=== PATIENT | male | born 1965 | race Two or more races ===

== ENCOUNTER 2020-06-30 20:39 | Inpatient (IN) | payer MEDICAID, SELFPAY ==
--- NOTE | ~2020-06-30 | XR_ITS ---
EXAMINATION: XR CHEST CLINICAL INFORMATION: Chest pain COMPARISON: Chest x-ray 07/01/2020 TECHNIQUE: Frontal view of the chest was obtained. 9:21 PM FINDINGS: Lungs are clear. No pulmonary vascular congestion. There is no pleural effusion. The heart size is normal. The cardiac and mediastinal contours are normal. There are multilevel degenerative changes of dorsal spine. Dextroscoliosis thoracic spine. XR/XR chest 1V IMPRESSION: No acute abnormality of chest.
--- NOTE | 2020-06-30 21:13 | ECG_ITS ---
Test Reason : CP Blood Pressure : / mmHG Vent. Rate : 071 BPM Atrial Rate : 071 BPM P-R Int : 164 ms QRS Dur : 098 ms QT Int : 406 ms P-R-T Axes : 049 025 -40 degrees QTc Int : 441 ms Normal sinus rhythm Minimal voltage criteria for LVH, may be normal variant Nonspecific T wave abnormality Abnormal ECG When compared with ECG of 20-FEB-2019 22:15, Nonspecific ST and T wave abnormality more prominent Referred By: Generic ED Physician Electronically Signed By:VAISHALI LUTHER
[2020-06-30 21:38] VITALS: BP 175/89; PULSE 69; RESP 20; TEMP 36.9; O2SAT 97; BMI 27.4
[2020-06-30 21:42] VITALS: BP 175/8; PULSE 72; PULSE 74; RESP 18; TEMP 36.9; O2SAT 98
[2020-06-30 21:42] LABS: MANUAL DIFF FLAG NO
[2020-06-30 21:45] LABS: Basophils Percent Auto 0.5 % (0-2); Eosinophils Absolute Auto 0.6 X10*3/uL (0.0-0.4); Eosinophils Percent Auto 7.9 % (0-4); Hematocrit 38.2 % (42-52); Hemoglobin 12.6 g/dl (14.0-18.0); Imm Gran Abs Auto 0.01 X10*3/uL (0.00-0.03); Imm Gran Pct Auto 0.1 % (0.0-0.4); Lymphocytes Absolute Auto 2.2 X10*3/uL (1.2-4.9); Lymphocytes Percent Auto 28.6 % (20-40); Mean Corpuscular Hemoglobin 27.2 pg (27.0-33.0); Mean Corpuscular Volume 82.3 fL (80-98); Mean Platelet Volume 9.1 fL (9.4-12.4); Monocytes Absolute Auto 0.6 X10*3/uL (0.1-1.2); Monocytes Percent Auto 7.8 % (2-11); Neutrophils Absolute Auto 4.3 X10*3/uL (2.0-8.3); Neutrophils Percent Auto 55.1 % (45-73); Platelet Count 284 X10*3/uL (160-400); Red Blood Count 4.64 X10*6/uL (4.60-5.80); Red Cell Distribution Width 13.8 % (11.0-16.0); White Blood Count 7.8 X10*3/uL (4.8-10.8)
--- NOTE | 2020-06-30 21:52 | ED.CHESTPAIN ---
HPI - Chest Pain General Chief Complaint: Chest Pain Stated Complaint: CHEST PAIN Time Seen by Provider: 06/30/20 21:52 Source: patient Mode of arrival: ambulatory Limitations: no limitations History of Present Illness HPI narrative: Patient history of anxiety missed his Paxil for 3 days taking lorazepam in the nighttime no known coronary artery disease came from [place] complaining of chest pain off and on for last 3 days in the past patient stopped Paxil but never had this kind of pain, pain is sharp , localized to the left side comes and go stays for few minutes get worse on exertion associated with shortness of breath no diaphoresis no radiation of pain. patient denies any chest pain at this time Related Data Home Medications Medication Instructions Recorded Confirmed aspirin 81 mg PO DAILY 06/30/20 06/30/20 levothyroxine 50 mcg PO DAILY 06/30/20 06/30/20 losartan-hydrochlorothiazide 100 mg PO DAILY 06/30/20 06/30/20 paroxetine HCl 30 mg PO QAM 06/30/20 06/30/20 trazodone 50 mg PO BEDTIME 06/30/20 06/30/20 Allergies Allergy/AdvReac Type Severity Reaction Status Date / Time No Known Allergies Allergy Verified 06/30/20 21:38 [No Known Allergies*] Review of Systems Review of Systems: Constitutional : No Weight loss, No Fever, No Chills ENT/Mouth : No sore throat, No Rhinorrhea Eyes: No Eye Pain, No Swelling Cardiovascular : + Chest Pain, no palpitations Respiratory : No Cough, No Sputum, no shortness of breath Gastrointestinal : no Nausea, No Vomiting, No Diarrhea, No abdominal Pain, no black stools Genitourinary : No Dysuria, No Urinary Frequency Musculoskeletal : No joint pain, No Myalgias, No Joint Swelling Skin : No Skin Lesions, No rash Neuro : No Weakness, No Numbness, No Dizziness, No Headache Psych : + Anxiety/Panic, No Depression Heme/Lymph: No Bruising, No Lymphadenopathy Endocrine : No Polyuria, No Polydipsia All other systems reviewed and are negative [facility] Past Medical History Medical History (Updated 06/30/20 @ 23:54 by Wood Heller MD) Anxiety Hypertension Hypothyroidism Social History Social History Alcohol intake: never Smoking Status: Never smoker Use of substances other than those prescribed or required for medical reasons: No Advance Directives: No Physical Exam Vital Signs: Vital Signs: Last Vital Signs Temp 98.4 F 06/30/20 21:42 Pulse 63 07/01/20 00:41 Resp 18 07/01/20 00:23 BP 180/97 H 07/01/20 00:41 Pulse Ox 98 07/01/20 00:23 Body Mass Index 27.4 Appearance: Alert. Oriented X3. No acute distress. Anxious++ Eyes: PERRLA, No Nystagmus ENT: Pharynx normal. Oral Mucosa moist Neck: Normal inspection. Neck supple. CVS: Normal heart rate and rhythm. Pulses normal. Respiratory: No respiratory distress. Equal air entry bilateral, no wheezing/rales/rhonchi Abdomen: Soft and nontender. Bowel sounds are present, no mass palpable, no CVA tenderness Skin: Skin warm and dry. Normal skin color. Normal skin turgor. Extremities: No lower extremity edema. No calf tenderness Neuro: Oriented X 3. No motor deficit. No sensory deficit.No cerebellar signs , cranial nerves II-XII intact MDM - Chest Pain MDM Narrative Medical decision making narrative: Patient with chest pain for last 3 days off and on increases on exertion EKG known specific changes with T inversion in at release patient denies any chest pain at this time troponin increased with without any significant delta troponin increase. Will admit patient for non-STEMI for further evaluation Lab Data Attestation: I reviewed the patient's lab results. Result diagrams: 06/30/20 21:31 06/30/20 21:31 Labs: Lab Results 06/30/20 06/30/20 06/30/20 Range/Units 21:31 21:31 21:31 WBC 7.8 (4.8-10.8) X10*3/uL RBC 4.64 (4.60-5.80) X10*6/uL Hgb 12.6 L (14.0-18.0) g/dl Hct 38.2 L (42-52) % MCV 82.3 (80-98) fL MCH 27.2 (27.0-33.0) pg MCHC 33.0 (31.0-36.0) g/dl RDW 13.8 (11.0-16.0) % Plt Count 284 (160-400) X10*3/uL MPV 9.1 L (9.4-12.4) fL Immature Gran % (Auto) 0.1 (0.0-0.4) % Neut % (Auto) 55.1 (45-73) % Lymph % (Auto) 28.6 (20-40) % [place] % (Auto) 7.8 (2-11) % Eos % (Auto) 7.9 H (0-4) % Baso % (Auto) 0.5 (0-2) % Lymph # (Auto) 2.2 (1.2-4.9) X10*3/uL [place] # (Auto) 0.6 (0.1-1.2) X10*3/uL Eos # (Auto) 0.6 H (0.0-0.4) X10*3/uL Baso # (Auto) 0.0 (0.0-0.2) X10*3/uL Abs Immat Gran (auto) 0.01 (0.00-0.03) X10*3/uL Absolute Neuts (auto) 4.3 (2.0-8.3) X10*3/uL Absolute Nucleated RBC 0.000 (0.0-0.012) X10*3/uL Nucleated RBC % (auto) 0.0 (0.0-0.2) /100WBC PT 12.1 (10.8-13.0) SEC INR 1.0 (0.9-1.1) APTT 32.8 (24.1-38.0) SEC D-Dimer < 200 NG/ML Hold Blue Top SEE NOTE Sodium 137 (135-145) mmol/L Potassium 3.3 (3.3-5.1) mmol/L Chloride 100 (96-108) mmol/L Carbon Dioxide 27 (22-29) mmol/L Anion Gap 13 (12-20) BUN 11 (9-16) mg/dL Creatinine 0.72 (0.5-1.4) mg/dL Estim Creat Clear Calc 112.0 Estimated GFR > 60 Random Glucose 126 H (60-115) mg/dL Calcium 9.1 (8.4-10.2) mg/dL Troponin I High Sens (<3.5-35.0) ng/L COVID-19 ([facility]) (Negative) COVID-19 Clin Com 05/25/21 05/25/21 05/26/21 Range/Units 21:31 22:37 00:42 WBC (4.8-10.8) X10*3/uL RBC (4.60-5.80) X10*6/uL Hgb (14.0-18.0) g/dl Hct (42-52) % MCV (80-98) fL MCH (27.0-33.0) pg MCHC (31.0-36.0) g/dl RDW (11.0-16.0) % Plt Count (160-400) X10*3/uL MPV (9.4-12.4) fL Immature Gran % (Auto) (0.0-0.4) % Neut % (Auto) (45-73) % Lymph % (Auto) (20-40) % [place] % (Auto) (2-11) % Eos % (Auto) (0-4) % Baso % (Auto) (0-2) % Lymph # (Auto) (1.2-4.9) X10*3/uL [place] # (Auto) (0.1-1.2) X10*3/uL Eos # (Auto) (0.0-0.4) X10*3/uL Baso # (Auto) (0.0-0.2) X10*3/uL Abs Immat Gran (auto) (0.00-0.03) X10*3/uL Absolute Neuts (auto) (2.0-8.3) X10*3/uL Absolute Nucleated RBC (0.0-0.012) X10*3/uL Nucleated RBC % (auto) (0.0-0.2) /100WBC PT (10.8-13.0) SEC INR (0.9-1.1) APTT (24.1-38.0) SEC D-Dimer NG/ML Hold Blue Top Sodium (135-145) mmol/L Potassium (3.3-5.1) mmol/L Chloride (96-108) mmol/L Carbon Dioxide (22-29) mmol/L Anion Gap (12-20) BUN (9-16) mg/dL Creatinine (0.5-1.4) mg/dL Estim Creat Clear Calc Estimated GFR Random Glucose (60-115) mg/dL Calcium (8.4-10.2) mg/dL Troponin I High Sens 86.3 H* 93.7 H* (<3.5-35.0) ng/L COVID-19 ([facility]) Negative (Negative) COVID-19 Clin Com See Note ECG Data ECG #1: Attestation: I personally reviewed and interpreted this ECG as follows: Interpretation: Normal sinus rhythm normal intervals LVH T inversion in lateral leads normal axis Discharge Plan Discharge Clinical Impression: Non-STEMI (non-ST elevated myocardial infarction) Patient Disposition: Admitted As Inpatient
[2020-06-30 22:05] LABS: Anion Gap 13 (12-20); Blood Urea Nitrogen 11 mg/dL (9-16); Calcium 9.1 mg/dL (8.4-10.2); Carbon Dioxide 27 mmol/L (22-29); Chloride 100 mmol/L (96-108); Estimated Glomerular Filt Rate > 60; Glucose Random 126 mg/dL (60-115); Potassium 3.3 mmol/L (3.3-5.1); Sodium 137 mmol/L (135-145)
[2020-06-30 22:15] LABS: Troponin-I High Sensitivity 86.3 ng/L (<3.5-35.0)
[2020-06-30] MEDS: Nitroglycerin 2 % Oint 1 GM Packet 1 INCH TRANSDERMA (22:34)
[2020-06-30] MEDS: Aspirin 81 MG TAB.CHEW 162 MG PO (22:36)
[2020-06-30 22:44] LABS: Prothrombin Time 12.1 SEC (10.8-13.0)
[2020-06-30 22:47] LABS: Partial Thromboplastin Time 32.8 SEC (24.1-38.0)
[2020-06-30 23:23] LABS: Troponin-I High Sensitivity 93.7 ng/L (<3.5-35.0)
[2020-06-30 23:42] LABS: D Dimer < 200 NG/ML
[2020-07-01] VITALS (8 sets, daily range): BP systolic 113–195; BP diastolic 56–97; PULSE 50–65; RESP 13–20; TEMP 36.6–36.7; O2SAT 95–99
--- NOTE | 2020-07-01 00:36 | PC.NURSE ---
Jaimie at bedside assessing pt, this RN makes him aware of BP.
[2020-07-01] MEDS: Metoprolol Tartrate 25 MG TABLET PO (00:41)
[2020-07-01 01:04] LABS: COVID-19 Test Negative (Negative); IDNOW Serial# 9DD0AD1C
--- NOTE | 2020-07-01 01:07 | P.HPHOSP_ITS ---
History of Present Illness Date of Service: 07/01/20 Chief Complaint: Chest pain 55-year-old male with a past medical history of hypertension, hyperlipidemia, hypothyroidism presented to the hospital with a chief complaint of chest pain. Patient reports the road past couple days he has been having intermittent ep isodes of chest pain located on the left side of the chest nonradiating no associated lightheadedness dizziness sweating nausea or vomiting. Denies any fever chills cough. Denies any numbness tingling. Denies any GI or symptoms. Patient reported chest pain improved at the time of my interview. Denies any headaches. Denies any signs of bleeding. Review of all other systems is negative except mentioned above ER course: For ER team patient EKG showed T-wave inversion in the lateral leads. Troponins are indeterminate and plateaued; patient was also noted to be in hypertensive urgency. Admitted to the hospital for further management. [facility] Medical History (Updated 06/30/20 @ 23:54 by Wood Heller MD) Anxiety Hypertension Hypothyroidism Social History Alcohol intake: never Smoking Status: Never smoker Use of substances other than those prescribed or required for medical reasons: No Advance Directives: No Meds Allergies Allergy/AdvReac Type Severity Reaction Status Date / Time No Known Allergies Allergy Verified 06/30/20 21:38 [No Known Allergies*] Active Medications: Current Medications Generic Name Dose Route Start Last Admin Trade Name Freq PRN Reason Stop Dose Admin Acetaminophen 650 mg 07/01/20 01:03 Acetaminophen 325 Mg Tablet PO Q6H PRN Pain, Mild (Pain Scale 1-3) Enoxaparin Sodium 75 mg 07/01/20 01:15 Enoxaparin Sodium 80 Mg/0.8 Ml Syringe 1 mg/kg (75 mg) SUBCUT Q12H [facility] Nitroglycerin 0.4 mg 07/01/20 01:06 Nitroglycerin 0.4 Mg Tab.Subl SUBLINGUAL Q5M PRN Chest Pain Senna 17.2 mg 07/01/20 01:03 Sennosides 8.6 Mg Tablet PO BEDTIME PRN Constipation Sodium Chloride 3 ml 07/01/20 08:00 0.9 % Sodium Chloride Flush 3 [facility] Medications Medication Instructions Recorded Confirmed Last Taken Type aspirin 81 mg PO DAILY 06/30/20 06/30/20 Unknown History levothyroxine 50 mcg PO DAILY 06/30/20 06/30/20 Unknown History losartan-hydrochlorothiazide 100 mg PO DAILY 06/30/20 06/30/20 Unknown History paroxetine HCl 30 mg PO QAM 06/30/20 06/30/20 Unknown History trazodone 50 mg PO BEDTIME 06/30/20 06/30/20 Unknown History Physical Exam Vital Signs and Narrative: Vital Signs: Last Vital Signs Temp 98.4 F 06/30/20 21:42 Pulse 63 07/01/20 00:41 Resp 18 07/01/20 00:23 BP 180/97 H 07/01/20 00:41 Pulse Ox 98 07/01/20 00:23 Body Mass Index 27.4 Gen: Appears be in no acute distress HEENT: NCAT, Moist mucosa. Pulmonary: Vesicular breath sounds, fair air entry CVS: Normal S1-S2 Abdomen: BS+, Soft, Nontender Extremities: Warm well perfused Neuro: Alert and awake. Results Labs CBC and Chem 7: 07/01/20 06:05 06/30/20 21:31 Labs: Laboratory Results - last 24 hr 06/30/20 06/30/20 06/30/20 21:31 21:31 21:31 MCV 82.3 MCH 27.2 MCHC 33.0 RDW 13.8 Plt Count 284 MPV 9.1 L Immature Gran % (Auto) 0.1 Neut % (Auto) 55.1 Lymph % (Auto) 28.6 [place] % (Auto) 7.8 Eos % (Auto) 7.9 H Baso % (Auto) 0.5 Lymph # (Auto) 2.2 [place] # (Auto) 0.6 Eos # (Auto) 0.6 H Baso # (Auto) 0.0 Abs Immat Gran (auto) 0.01 Absolute Neuts (auto) 4.3 Absolute Nucleated RBC 0.000 Nucleated RBC % (auto) 0.0 PT 12.1 INR 1.0 APTT 32.8 D-Dimer < 200 Hold Blue Top SEE NOTE Anion Gap 13 Estim Creat Clear Calc 112.0 Estimated GFR > 60 Random Glucose 126 H Calcium 9.1 Troponin I High Sens COVID-19 ([facility]) COVID-19 Clin Com 06/30/20 06/30/20 07/01/20 21:31 22:37 00:42 MCV MCH MCHC RDW Plt Count MPV Immature Gran % (Auto) Neut % (Auto) Lymph % (Auto) [place] % (Auto) Eos % (Auto) Baso % (Auto) Lymph # (Auto) [place] # (Auto) Eos # (Auto) Baso # (Auto) Abs Immat Gran (auto) Absolute Neuts (auto) Absolute Nucleated RBC Nucleated RBC % (auto) PT INR APTT D-Dimer Hold Blue Top Anion Gap Estim Creat Clear Calc Estimated GFR Random Glucose Calcium Troponin I High Sens 86.3 H* 93.7 H* COVID-19 ([facility]) Negative COVID-19 Clin Com See Note Imaging Radiologist's Impressions: Impressions Chest X-Ray 06/30/20 21:13 IMPRESSION: No acute abnormality of chest. Assessment and Plan (1) Non-STEMI (non-ST elevated myocardial infarction): Status: Acute 55-year-old male with a past medical history of hypertension, hyperlipi demia, hypothyroidism presented to the hospital with a chief complaint of chest pain. Noted to have indeterminate troponins and little T-wave inversions on the EKG. Admitted for further management. NSTEMI: Patient currently chest pain-free Will keep the patient on telemetry Echocardiogram Will start the patient on Lovenox at therapeutic dose. Continue aspirin and metoprolol. Will obtain lipid profile, TSH, hemoglobin A1c Hypertensive urgency: Patient asymptomatic. Continue home medications. Patient is started on metoprolol as well. History of hypothyroidism: Continue home levothyroxine. DVT prophylaxis: Patient on Lovenox Code status: Full code
[2020-07-01] MEDS: Enoxaparin Sodium 80 MG/0.8 ML SYRINGE 75 MG SUBCUT (01:57)
[2020-07-01] MEDS: traZODone HCL 50 MG TABLET PO (02:02)
[2020-07-01 06:13] LABS: MANUAL DIFF FLAG NO
[2020-07-01] MEDS: Levothyroxine Sodium 50 MCG TABLET PO (06:29)
[2020-07-01 06:32] LABS: Basophils Absolute Auto 0.1 X10*3/uL (0.0-0.2); Basophils Percent Auto 0.8 % (0-2); Eosinophils Absolute Auto 0.7 X10*3/uL (0.0-0.4); Eosinophils Percent Auto 8.4 % (0-4); Hematocrit 41.9 % (42-52); Hemoglobin 13.3 g/dl (14.0-18.0); Imm Gran Abs Auto 0.02 X10*3/uL (0.00-0.03); Imm Gran Pct Auto 0.2 % (0.0-0.4); Lymphocytes Absolute Auto 2.2 X10*3/uL (1.2-4.9); Lymphocytes Percent Auto 25.7 % (20-40); Mean Corpuscular HGB Conc 31.7 g/dl (31.0-36.0); Mean Corpuscular Hemoglobin 26.4 pg (27.0-33.0); Mean Corpuscular Volume 83.1 fL (80-98); Mean Platelet Volume 9.3 fL (9.4-12.4); Monocytes Absolute Auto 0.6 X10*3/uL (0.1-1.2); Neutrophils Percent Auto 57.9 % (45-73); Platelet Count 311 X10*3/uL (160-400); Red Blood Count 5.04 X10*6/uL (4.60-5.80); Red Cell Distribution Width 13.8 % (11.0-16.0); White Blood Count 8.7 X10*3/uL (4.8-10.8)
[2020-07-01 06:51] LABS: Anion Gap 12 (12-20); Blood Urea Nitrogen 10 mg/dL (9-16); Calcium 9.3 mg/dL (8.4-10.2); Carbon Dioxide 31 mmol/L (22-29); Chloride 99 mmol/L (96-108); Creatinine Clr Calc Pharmacy 108.9; Estimated Glomerular Filt Rate > 60; Glucose Random 132 mg/dL (60-115); Potassium 3.7 mmol/L (3.3-5.1); Sodium 138 mmol/L (135-145)
[2020-07-01 06:53] LABS: Cholesterol 248 mg/dL; HDL Cholesterol 56 mg/dL; LDL Cholesterol Calculated 172 mg/dl; Triglycerides 102 mg/dL
[2020-07-01 07:15] LABS: Thyroid Stimulating Hormone 4.35 uIU/mL (0.32-4.0)
[2020-07-01 07:17] LABS: Estimated Average Glucose 137 mg/dL; Hemoglobin A1c % 6.4 %
[2020-07-01] MEDS: PARoxetine HCL 30 MG TABLET PO (08:02)
[2020-07-01] MEDS: Metoprolol Tartrate 12.5 MG HALFTAB PO (08:03)
[2020-07-01] MEDS: Aspirin Enteric Coated 81 MG TABLET.DR PO (08:03)
[2020-07-01] MEDS: 0.9 % Sodium Chloride Flush 3 ML SYRINGE IVFLUSH (08:03)
--- NOTE | 2020-07-01 10:19 | P.CONCA_ITS ---
History of Present Illness History of Present Illness Date of Service: 07/01/20 Consult reason: chest pain Chief complaint: NSTEMI Narrative: This is a cardiology consultation regarding chest pain. Patient states that he is originally from [place] but has recently moved here few weeks back. He has a history of hypertension on medications. Otherwise no known co ronary disease or myocardial infarction. He states that for the last few days, he has been having a discomfort in the left chest. This has been happening primarily with walking cording to him. When he is resting he states he feels okay. Denies any shortness of breath or other cardiac symptoms. Hence he was admitted. Troponins have been elevated since admission and hence we have been asked to assess him. Nonsmoker. Denies any family history of premature cardiac disease. Review of Systems Review of Systems: Yes all other systems are reviewed and are negative Cardiovascular: Cardiovascular: Reports as per HPI, Reports no additional cardiovascular complaints, Denies acrocyanosis, Denies cool extremities, Denies painful fingertips, Reports chest pain, Denies chest pain at rest, Denies diaphoresis, Denies syncope, Denies irregular heart rhythm, Denies claudication, Denies leg edema, Denies lightheadedness, Denies palpitations and Denies dyspnea Respiratory: Respiratory: Denies dyspnea Neurologic: Denies syncope Endocrine: Endocrine: Denies palpitations PMFSH Past Medical History Medical History (Updated 07/01/20 @ 10:22 by Prateek Navarrete MD) Anxiety Essential hypertension Hypertension Hypothyroidism Social History Social History Alcohol intake: never Use of substances other than those prescribed or required for medical reasons: No Currently Displaying Signs/Symptoms of Drug Intoxication Withdrawal: No Advance Directives: No Do you have thoughts of harming others: None Do you have a plan to hurt others: No Plan Meds Allergies Allergy/AdvReac Type Severity Reaction Status Date / Time No Known Allergies Allergy Verified 06/30/20 21:38 [No Known Allergies*] Active Medications: Current Medications Generic Name Dose Route Start Last Admin Trade Name Freq PRN Reason Stop Dose Admin Acetaminophen 650 mg 07/01/20 01:03 Acetaminophen 325 Mg Tablet PO Q6H PRN Pain, Mild (Pain Scale 1-3) Aspirin 81 mg 07/01/20 09:00 07/01/20 08:03 Aspirin Enteric Coated 81 Mg Tablet. PO 81 mg DAILY [facility] Administration Atorvastatin Calcium 40 mg 07/01/20 21:00 Atorvastatin Calcium 40 Mg Tablet PO BEDTIME [facility] Enoxaparin Sodium 75 mg 07/01/20 02:00 07/01/20 01:57 Enoxaparin Sodium 80 Mg/0.8 Ml Syringe 1 mg/kg (75 mg) 75 mg SUBCUT Administration Q12H [facility] Hydrochlorothiazide 12.5 mg 07/01/20 09:54 Hydrochlorothiazide 12.5 Mg Tablet PO DAILY [facility] Protocol Levothyroxine Sodium 50 mcg 07/01/20 06:30 07/01/20 06:29 Levothyroxine Sodium 50 Mcg Tablet PO 50 mcg DAILY@0630 [facility] Administration Losartan Potassium 100 mg 07/01/20 09:52 Losartan Potassium 50 Mg Tablet PO DAILY [facility] Protocol Metoprolol Tartrate 12.5 mg 07/01/20 09:00 07/01/20 08:03 Metoprolol Tartrate 12.5 Mg Halftab PO 12.5 mg BID [facility] Administration Protocol Nitroglycerin 0.4 mg 07/01/20 01:06 Nitroglycerin 0.4 Mg Tab.Subl SUBLINGUAL Q5M PRN Chest Pain Paroxetine HCl 30 mg 07/01/20 09:00 07/01/20 08:02 Paroxetine Hcl 30 Mg Tablet PO 30 mg DAILY [facility] Administration Senna 17.2 mg 07/01/20 01:03 Sennosides 8.6 Mg Tablet PO BEDTIME PRN Constipation Sodium Chloride 3 ml 07/01/20 08:00 07/01/20 08:03 0.9 % Sodium Chloride Flush 3 Ml Syringe IVFLUSH 3 ml QSHIFT [facility] Administration Trazodone HCl 50 mg 07/01/20 21:00 Trazodone Hcl 50 Mg Tablet PO BEDTIME [facility] Home Medications Medication Instructions Recorded Confirmed Last Taken Type aspirin 81 mg PO DAILY 06/30/20 06/30/20 Unknown History levothyroxine 50 mcg PO DAILY 06/30/20 06/30/20 Unknown History losartan-hydrochlorothiazide 100 mg PO DAILY 06/30/20 06/30/20 Unknown History paroxetine HCl 30 mg PO QAM 06/30/20 06/30/20 Unknown History trazodone 50 mg PO BEDTIME 06/30/20 06/30/20 Unknown History Physical Exam Vital Signs: Vital Signs: Last Vital Signs Temp 98.0 F 07/01/20 07:52 Pulse 62 07/01/20 07:52 Resp 17 07/01/20 07:52 BP 113/56 L 07/01/20 07:52 Pulse Ox 99 07/01/20 07:52 Body Mass Index 27.4 Const: General: cooperative, comfortable and no acute distress Orientation/consciousness: patient oriented x3 HENMT: Other: Unremarkable Neck: Neck: Yes normal visual inspection Chest: Chest palpation & inspection: normal inspection of the chest Resp: Auscultation: clear to auscultation bilaterally, no crackles and no wheezes Cardio: Jugular venous distension: no JVD Palpation: normal PMI Heart sounds: S1 normal heart sound present, S2 normal heart sound present, no schneider ps, no murmurs and no rubs GI: Palpation (GI): Soft to palpation Back/Spine/Pelvis: Other: unremarkable Skin: General skin exam: no rashes or lesions noted Neuro: General: patient oriented x3 Extrem: General: Yes no clubbing, cyanosis or edema Psych: Mental Status: mental status grossly normal Results Labs and Meds Result diagrams: 07/01/20 06:05 07/01/20 06:05 Lab results: Laboratory Results - last 24 hr 06/30/20 06/30/20 06/30/20 21:31 21:31 21:31 WBC 7.8 RBC 4.64 Hgb 12.6 L Hct 38.2 L MCV 82.3 MCH 27.2 MCHC 33.0 RDW 13.8 Plt Count 284 MPV 9.1 L Immature Gran % (Auto) 0.1 Neut % (Auto) 55.1 Lymph % (Auto) 28.6 [place] % (Auto) 7.8 Eos % (Auto) 7.9 H Baso % (Auto) 0.5 Lymph # (Auto) 2.2 [place] # (Auto) 0.6 Eos # (Auto) 0.6 H Baso # (Auto) 0.0 Abs Immat Gran (auto) 0.01 Absolute Neuts (auto) 4.3 Absolute Nucleated RBC 0.000 Nucleated RBC % (auto) 0.0 PT 12.1 INR 1.0 APTT 32.8 D-Dimer < 200 Hold Blue Top SEE NOTE Sodium 137 Potassium 3.3 Chloride 100 Carbon Dioxide 27 Anion Gap 13 BUN 11 Creatinine 0.72 Estim Creat Clear Calc 112.0 Estimated GFR > 60 Random Glucose 126 H Estimat Average Glucose Hemoglobin A1c % Calcium 9.1 Troponin I High Sens Triglycerides Cholesterol LDL Cholesterol, Calc HDL Cholesterol TSH COVID-19 ([facility]) COVID-19 Clin Com 06/30/20 06/30/20 07/01/20 21:31 22:37 00:42 WBC RBC Hgb Hct MCV MCH MCHC RDW Plt Count MPV Immature Gran % (Auto) Neut % (Auto) Lymph % (Auto) [place] % (Auto) Eos % (Auto) Baso % (Auto) Lymph # (Auto) [place] # (Auto) Eos # (Auto) Baso # (Auto) Abs Immat Gran (auto) Absolute Neuts (auto) Absolute Nucleated RBC Nucleated RBC % (auto) PT INR APTT D-Dimer Hold Blue Top Sodium Potassium Chloride Carbon Dioxide Anion Gap BUN Creatinine Estim Creat Clear Calc Estimated GFR Random Glucose Estimat Average Glucose Hemoglobin A1c % Calcium Troponin I High Sens 86.3 H* 93.7 H* Triglycerides Cholesterol LDL Cholesterol, Calc HDL Cholesterol TSH COVID-19 ([facility]) Negative COVID-19 Clin Com See Note 07/01/20 07/01/20 07/01/20 06:05 06:05 06:05 WBC 8.7 RBC 5.04 Hgb 13.3 L Hct 41.9 L MCV 83.1 MCH 26.4 L MCHC 31.7 RDW 13.8 Plt Count 311 MPV 9.3 L Immature Gran % (Auto) 0.2 Neut % (Auto) 57.9 Lymph % (Auto) 25.7 [place] % (Auto) 7.0 Eos % (Auto) 8.4 H Baso % (Auto) 0.8 Lymph # (Auto) 2.2 [place] # (Auto) 0.6 Eos # (Auto) 0.7 H Baso # (Auto) 0.1 Abs Immat Gran (auto) 0.02 Absolute Neuts (auto) 5.0 Absolute Nucleated RBC 0.000 Nucleated RBC % (auto) 0.0 PT INR APTT D-Dimer Hold Blue Top Sodium 138 Potassium 3.7 Chloride 99 Carbon Dioxide 31 H Anion Gap 12 BUN 10 Creatinine 0.74 Estim Creat Clear Calc 108.9 Estimated GFR > 60 Random Glucose 132 H Estimat Average Glucose 137 Hemoglobin A1c % 6.4 Calcium 9.3 Troponin I High Sens Triglycerides Cholesterol LDL Cholesterol, Calc HDL Cholesterol TSH COVID-19 ([facility]) COVID-19 [employer] 07/01/20 06:05 WBC RBC Hgb Hct MCV MCH MCHC RDW Plt Count MPV Immature Gran % (Auto) Neut % (Auto) Lymph % (Auto) [place] % (Auto) Eos % (Auto) Baso % (Auto) Lymph # (Auto) [place] # (Auto) Eos # (Auto) Baso # (Auto) Abs Immat Gran (auto) Absolute Neuts (auto) Absolute Nucleated RBC Nucleated RBC % (auto) PT INR APTT D-Dimer Hold Blue Top Sodium Potassium Chloride Carbon Dioxide Anion Gap BUN Creatinine Estim Creat Clear Calc Estimated GFR Random Glucose Estimat Average Glucose Hemoglobin A1c % Calcium Troponin I High Sens Triglycerides 102 Cholesterol 248 LDL Cholesterol, Calc 172 HDL Cholesterol 56 TSH 4.35 H COVID-19 ([facility]) COVID-19 Clin Com ECG Attestation: I personally reviewed and interpreted this ECG as follows: Interpretation: Admission EKG shows sinus rhythm at 71/Min; nonspecific ST-T changes; voltage criteria for left ventricular hypertrophy. Compared to prior EKG from 2019, lateral nonspecific changes are more prominent. Imaging Radiologist's impression: Impressions Chest X-Ray 06/30/20 21:13 IMPRESSION: No acute abnormality of chest. Assessment and Plan (1) Non-STEMI (non-ST elevated myocardial infarction): Status: Acute (2) Essential hypertension: Status: Acute Labs reviewed. Hemoglobin is 13.3. White cells 8.7. Platelets are 311. Potassium 3.7. Creatinine is 0.74. BUN is 10. Hemoglobin A1c is 6.4%. High sensitivity troponins are 86 followed by 93. LDL 172. TSH 4.35. COVID negative. Overall, symptoms of recent chest pain that sounds exertional accompanied by slightly elevated troponins. Echocardiogram requested today and pending. EKG is nonspecific. Blood pressure was high when he came at 175/89 mm Hg but the most recent value was 113/56 mm Hg. Recommend cardiac catheterization for further evaluation. Discussed with with the patient and he understands and agre es. Currently on Lovenox subcutaneous, aspirin, beta-blockers, losartan, HCTZ, atorvastatin. Procedures Date of Service Date of Service: 07/01/20
--- NOTE | 2020-07-01 10:30 | CA_ITS ---
Transthoracic Echocardiogram Patient (Last, First, Middle): Duglas Cooper, Gender: Male Date of : 1965 Age: 55 Procedure Date: 07/01/2020 Procedure Type: Transthoracic Echocardiogram Location: S3E Height: 167.64 cm Weight: 77.11 kg BSA: 1.87 m2 Heart Rate: bpm BP: 146 / 84 mmHg Adventure Guide: YR/CP Referring MD: Tico Etienne MD Symptoms: nstemi Study Quality: Fair/Contrast ECG Rhythm: Sinus Conclusions: - The left ventricular systolic function is normal. The visually estimated ejection fraction is between 60-65%. - The basal inferior segment is akinetic. The basal inferolateral segment is hypokinetic. - The inferolateral wall has aneurysmal type appearance but the red still seem to contract. Possibly from probe angulation but not definitive. Consider MRI for further evaluation. Findings Procedure Information Contrast agent, definity, is being given per protocol without apparent complications. Left Ventricle Normal left ventricular cavity size. The left ventricular systolic function is normal. The visually estimated ejection fraction is between 60-65%. There is mild septal and mild basal asymmetric hypertrophy. Even with contrast use, wall motion assessment is not optimal. The inferolateral wall has aneurysmal type appearance but the red still seem to contract. Basal inferior wall seems akinetic in some views. Wall Motion Rest Echo Findings The basal inferolateral segment is hypokinetic. The basal inferior segment is akinetic. Right Ventricle Normal right ventricular cavity size and systolic function. Atria The left atrium is mildly dilated. The right atrium is normal in size. Aortic Valve There is a normal trileaflet aortic valve. There is no aortic valve stenosis. There is trace (trivial) aortic valve regurgitation. Mitral Valve The mitral valve appears normal. There is mild mitral valve regurgitation. There is no mitral valve stenosis. Pulmonic Valve The pulmonic valve was not well visualized. Tricuspid Valve Normal tricuspid valve structure. There is trace tricuspid valve regurgitation. The pulmonary artery systolic pressure is normal. Great Vessels The aortic annulus, sinuses of valsalva, and asc aorta are normal in size. Venous The inferior vena cava is normal in size and collapses greater than 50% with inspiration. Pericardium/Pleural There is no evidence of pericardial effusion. Prior Study Comparison Changes noted compared to prior study dated: 02/21/2019. See comments on wall motion. Measurements 2D Linear Measurements IVSd: 1.14 0.6-0.9/0.6-1.0 cm LVIDd: 4.20 3.9-5.3/4.2-5.9 cm LVIDd Index: 2.25 2.4-3.2/2.2-3.1 cm/m2 LVIDs: 2.98 2.0-3.6 cm LVPWd: 1.13 0.7-1.1 cm Ao Root: 2.90 2.1-3.5 cm LA Diam: 3.70 2.7-3.8/3.0-4.0 cm LAIDs Index: 1.98 1.5-2.3 cm/m2 LV Mass: 204.62 67-162/88-224 g LV Mass Index: 109.42 43-95/49-115 g/m2 LVOT Diam: 2.40 3.0+(-)1.3 cm 2D Systolic Function EF 4C: 64.00 >55% EF 2C: 58.70 >55% EF BiP: 63.40 >55% Mitral Valve MV Pk E: 0.80 MV PK A: 0.56 MV Decel Time: 261.00 E/A: 1.40 E'Lateral: 8.27 E'Medial: 6.09 E/E' Med: 13.20 E/E' Lat: 9.70 PHT: 76.00 MVA PHT: 2.89 Decel Woodruff: 3.08 Aortic Valve AoV Pk James: 0.97 AoV Mn James: 0.73 AoV VTI: 0.27 AoV Pk Grad: 4.00 Aov Mn Grad: 2.00 OSVALDO Cont.VTI: 3.10 LVOT LVOT Pk James: 0.79 LVOT Mn James: 0.50 LVOT VTI: 0.18 LVOT Pk Grad: 3.00 LVOT Mn Grad: 1.00 LVOT Diam: 2.40 LVOT Area: 4.52 Diastolic Function MV Pk E: 0.80 MV Pk A: 0.56 E/A: 1.40 E'Medial: 6.09 E/E' Med: 13.20 E' Laterial: 8.27 E/E' Lat: 9.70 Tricuspid Valve TR Pk James: 2.04 TR Pk Grad: 17.00 RA Press: 3.00 RVSP: 20.00 Great Vessels Aorta Ao Root-2D: 2.90 2.0-3.7 cm Ao Asc: 2.80 2.1-3.4 cm Updated in Other Vendor System with Status of Final Prateek Navarrete MD electronically signed on 07/01/2020 3:43:15 PM with status of Final
--- NOTE | 2020-07-01 11:28 | P.DS_ITS ---
DS: Providers Provider Date of Service: 07/01/20 Date of admission: 07/01/20 01:03 Primary care physician: None Physician Consults: 07/01/20 01:03 Consult to Cardiology Routine Consulting Provider: Prateek Navarrete Reason for consultation: Chest pain 07/01/20 10:46 Consult to Care Team Routine Comment: Reason for consultation: depression DS: Diagnosis Discharge Diagnosis (1) Non-STEMI (non-ST elevated myocardial infarction): Status: Acute (2) Essential hypertension: Status: Acute DS: Medications Discharge Medications Home Medications: Home Medications Medication Instructions Recorded Confirmed aspirin 81 mg PO DAILY 06/30/20 06/30/20 levothyroxine 50 mcg PO DAILY 06/30/20 06/30/20 losartan-hydrochlorothiazide 100 mg PO DAILY 06/30/20 06/30/20 paroxetine HCl 30 mg PO QAM 06/30/20 06/30/20 trazodone 50 mg PO BEDTIME 06/30/20 06/30/20 Previous Rx's Medication Instructions Recorded enoxaparin 75 mg SUBCUT Q12H #2 ml 07/01/20 DS: Summary Hospital Course Hospital Course: 55-year-old male with a past medical history of hypertension, hyperlipidemia, hypothyroidism presented to the hospital with a chief complaint of chest pain. Patient reports the road past couple days he has been having intermittent episodes of chest pain located on the left side of the chest nonradiating no associated lightheadedness dizziness sweating nausea or vomiting. Denies any fever chills cough. Denies any numbness tingling. Denies any GI or symptoms. Patient reported chest pain improved at the time of my interview. Denies any headaches. Denies any signs of bleeding. Review of all other systems is negative except mentioned above ER course: For ER team patient EKG showed T-wave inversion in the lateral leads. Troponins are indeterminate and plateaued; patient was also noted to be in hypertensive urgency. Admitted to the hospital for further management. The course problem jasso section: Patient came withcheta pain and found to have Nstemi -High sensitivity troponins are 86 followed by 93. LDL 172. TSH 4.35,COVID negative,Hemoglobin A1c is 6.4%. Overall, symptoms of recent chest pain that sounds exertional accompanied by slightly elevated troponins. Echocardiogram requested today and pending. EKG is nonspecific. Blood pressure was high when he came at 175/89 mm Hg but the most recent value was 113/56 mm Hg. cardiology saw the patient:Recommend cardiac catheterization for further evaluation. Discussed with with the patient and he understands and agrees. Currently on heaprin drip, aspirin, beta-blockers, losartan, HCTZ, atorvastatin. Mild hyperglycemia : Hemoglobin A1c as above is 6.4, recommended to patient to follow diabetic diet. If fingersticks uncontrolled, may need diabetic medication also in [facility]. Above management discussed with the patient in detail length he understand and in agreement with the above plan, time spent 50 minutes and 50% time spent on counseling. Significant findings: As above. Procedures performed: None. Treatment and response: As above. Complications: None. Time Spent with Patient Time attestation: Total time spent providing and/or coordinating discharge services: Discharge coordination time: Greater than 30 minutes Quality: Stroke Does the patient have a stroke diagnosis?: No Physical Exam Vital Signs: Vital Signs: Last Vital Signs Temp 98.0 F 07/01/20 07:52 Pulse 62 07/01/20 07:52 Resp 17 07/01/20 07:52 BP 113/56 L 07/01/20 07:52 Pulse Ox 99 07/01/20 07:52 Body Mass Index 27.4 Physical exam: Constitutional: Not in acute distress. Heent: eye: anicteric , no discharge. head : Atraumatic Neck: Supple. Cvs: rrr, [id number] , no murmur res: clear to auscultation ,no rhonchii or wheezing abd: no rebound or guarding ,nt, bs present. ext pulses present , no cyanosis neuro: axo3 , nonfocal. DS: Data Data Completed and Pending Labs on day of discharge: Laboratory Results - last 24 hr 06/30/20 06/30/20 06/30/20 21:31 21:31 21:31 WBC 7.8 RBC 4.64 Hgb 12.6 L Hct 38.2 L MCV 82.3 MCH 27.2 MCHC 33.0 RDW 13.8 Plt Count 284 MPV 9.1 L Immature Gran % (Auto) 0.1 Neut % (Auto) 55.1 Lymph % (Auto) 28.6 [place] % (Auto) 7.8 Eos % (Auto) 7.9 H Baso % (Auto) 0.5 Lymph # (Auto) 2.2 [place] # (Auto) 0.6 Eos # (Auto) 0.6 H Baso # (Auto) 0.0 Abs Immat Gran (auto) 0.01 Absolute Neuts (auto) 4.3 Absolute Nucleated RBC 0.000 Nucleated RBC % (auto) 0.0 PT 12.1 INR 1.0 APTT 32.8 D-Dimer < 200 Hold Blue Top SEE NOTE Sodium 137 Potassium 3.3 Chloride 100 Carbon Dioxide 27 Anion Gap 13 BUN 11 Creatinine 0.72 Estim Creat Clear Calc 112.0 Estimated GFR > 60 Random Glucose 126 H Estimat Average Glucose Hemoglobin A1c % Calcium 9.1 Troponin I High Sens Triglycerides Cholesterol LDL Cholesterol, Calc HDL Cholesterol TSH COVID-19 ([facility]) COVID-[employer] 06/30/20 06/30/20 07/01/20 21:31 22:37 00:42 WBC RBC Hgb Hct MCV MCH MCHC RDW Plt Count MPV Immature Gran % (Auto) Neut % (Auto) Lymph % (Auto) [place] % (Auto) Eos % (Auto) Baso % (Auto) Lymph # (Auto) [place] # (Auto) Eos # (Auto) Baso # (Auto) Abs Immat Gran (auto) Absolute Neuts (auto) Absolute Nucleated RBC Nucleated RBC % (auto) PT INR APTT D-Dimer Hold Blue Top Sodium Potassium Chloride Carbon Dioxide Anion Gap BUN Creatinine Estim Creat Clear Calc Estimated GFR Random Glucose Estimat Average Glucose Hemoglobin A1c % Calcium Troponin I High Sens 86.3 H* 93.7 H* Triglycerides Cholesterol LDL Cholesterol, Calc HDL Cholesterol TSH COVID-19 ([facility]) Negative COVID-19 [employer] See Note 07/01/20 07/01/20 07/01/20 06:05 06:05 06:05 WBC 8.7 RBC 5.04 Hgb 13.3 L Hct 41.9 L MCV 83.1 MCH 26.4 L MCHC 31.7 RDW 13.8 Plt Count 311 MPV 9.3 L Immature Gran % (Auto) 0.2 Neut % (Auto) 57.9 Lymph % (Auto) 25.7 [place] % (Auto) 7.0 Eos % (Auto) 8.4 H Baso % (Auto) 0.8 Lymph # (Auto) 2.2 [place] # (Auto) 0.6 Eos # (Auto) 0.7 H Baso # (Auto) 0.1 Abs Immat Gran (auto) 0.02 Absolute Neuts (auto) 5.0 Absolute Nucleated RBC 0.000 Nucleated RBC % (auto) 0.0 PT INR APTT D-Dimer Hold Blue Top Sodium 138 Potassium 3.7 Chloride 99 Carbon Dioxide 31 H Anion Gap 12 BUN 10 Creatinine 0.74 Estim Creat Clear Calc 108.9 Estimated GFR > 60 Random Glucose 132 H Estimat Average Glucose 137 Hemoglobin A1c % 6.4 Calcium 9.3 Troponin I High Sens Triglycerides Cholesterol LDL Cholesterol, Calc HDL Cholesterol TSH COVID-19 ([facility]) COVID-19 [employer] 07/01/20 06:05 WBC RBC Hgb Hct MCV MCH MCHC RDW Plt Count MPV Immature Gran % (Auto) Neut % (Auto) Lymph % (Auto) [place] % (Auto) Eos % (Auto) Baso % (Auto) Lymph # (Auto) [place] # (Auto) Eos # (Auto) Baso # (Auto) Abs Immat Gran (auto) Absolute Neuts (auto) Absolute Nucleated RBC Nucleated RBC % (auto) PT INR APTT D-Dimer Hold Blue Top Sodium Potassium Chloride Carbon Dioxide Anion Gap BUN Creatinine Estim Creat Clear Calc Estimated GFR Random Glucose Estimat Average Glucose Hemoglobin A1c % Calcium Troponin I High Sens Triglycerides 102 Cholesterol 248 LDL Cholesterol, Calc 172 HDL Cholesterol 56 TSH 4.35 H COVID-19 ([facility]) COVID-19 Clin Com Discharge Plan Discharge Patient Disposition: Xfer Acute Care Hospital Discharge Diagnosis: Nstemi Referrals: Physician,None [Primary Care Provider] - 1 Week Discharge Medications: New heparin(porcine) in 0.45% NaCl 25,000 unit/250 mL Parenteral Solution 25,000 unit continuous IV infusion .Q0M Qty: 1 RF: 0 metoprolol tartrate 25 mg tablet 12.5 mg PO BID Qty: 1 RF: 0 atorvastatin 40 mg Tablet 40 mg PO BEDTIME Qty: 1 RF: 0 Continued trazodone 50 mg tablet 50 mg PO BEDTIME RF: 0 aspirin 81 mg tablet,delayed release (DR/EC) 81 mg PO DAILY RF: 0 levothyroxine 50 mcg tablet 50 mcg PO DAILY RF: 0 paroxetine HCl 30 mg tablet 30 mg PO QAM RF: 0 losartan-hydrochlorothiazide 100 mg PO DAILY RF: 0 Discharge Orders: Discharge Order (Routine); Ordered 07/01/20 Ordered By: Leda Ramirez Diet: diabetic diet, low fat, low cholesterol and low salt diet Activity on Discharge: As tolerated Stand Alone Forms: Patient Portal Discharge page Care Plan Goals: Patient came withcheta pain and found to have Nstemi -High sensitivity troponins are 86 followed by 93. LDL 172. TSH 4.35,COVID negative,Hemoglobin A1c is 6.4%. Overall, symptoms of recent chest pain that sounds exertional accompanied by slightly elevated troponins. Echocardiogram requested today and pending. EKG is nonspecific. Blood pressure was high when he came at 175/89 mm Hg but the most recent value was 113/56 mm Hg. cardiology saw the patient:Recommend cardiac catheterization for further evaluation. Discussed with with the patient and he understands and agrees. Currently on heparin drip, aspirin, beta-blockers, losartan, HCTZ, atorvastatin. Health Concerns: as above. Plan of Treatment: as above. Assessment: as above.
[2020-07-01] MEDS: hydroCHLOROthiazide 12.5 MG TABLET PO (11:29)
[2020-07-01] MEDS: Losartan Potassium 50 MG TABLET 100 MG PO (11:29)
--- NOTE | 2020-07-01 12:35 | MHC.CM.PN ---
. ELECTRONIC MEDICAL RECORD REVIEWED ALONG WITH CASE DISCUSSED WITH HOSPITALIST MET WITH PATIENT AND EDUCATED ABOUT THE IMPORTANCE OF HAVING A HCP PROXY.EXPLAINED THE ROLE OF THE NURSE ENGINE LATHE SET UP OPERATOR TO HIM IN REGARDS TO THE TRANSITION FROM HOSPITAL TO HOME. PATIENT REPORTED THAT HE HAS MOVED FROM [place] TO [facility] ABOUT A MONTH AGO. HE HAS NO PCP HERE AND HAS RAN OUT OF HIS MEDICATIONS. I CALLED AND SPOKE WITH PATIENT REGISTRATION AND SHE INFORMED ME THAT IN THE COMPUTER IT NOTES THAT PATIENT IS NOT ELIGEABLE FOR [employer] . MESSAGE SENT TO [employer] IN [employer] IF SHE COULD LOOK INTO TO SEE IF HE WOULD BE ELIGEABLE FOR [employer] CONNECTOR. HE LIVES WITH HIS AND FAMILY , HE DOES NOT WORK , HE IS ACTIVE AND INDEPENDENT IN ALL ADLS AND MOBILITY WITH OUT ANY DEVICEE HE REPORTED THAT HE WAS RECIVING MEDICAtions for anxiety but has run out of these, he was admitted with diagnosis of nstmi and after speaking with hospitlaist patient was evaluated by the collections assistant and will be transferred to [facility] for cardiac cath . discharge plan acute transfer for cardiac cath
[2020-07-01] MEDS: Heparin Sodium,Porcine/1/2NS 25,000 UNIT/250 ML IV.SOLN 10.8 UNIT IVCONT (14:44)
[2020-07-01 14:57] LABS: INTERNATIONAL NORM RATIO 1.1 (0.9-1.1); Prothrombin Time 12.8 SEC (10.8-13.0)
[2020-07-01 15:00] LABS: Partial Thromboplastin Time 37.2 SEC (24.1-38.0)
--- NOTE | 2020-07-01 16:26 | PC.NURSE ---
Report given to Gabby NIETO at [facility] 5. Awaiting transport. Transfer/discharge instructions given to patient.
== END 2020-07-01 17:30 | disposition short-term general hospital (02) | DRG 199 ==
LOC: HO.ED 23:54 → HO.EDOVER 07-01 03:20 → HO.S3 07-01 04:35
PROVIDERS: Admitting Provider Hospitalist; Emergency Provider Internal Medicine; Visit Provider Internal Medicine
DX: I16.0 Hypertensive urgency (principal); I21.4 Non-ST elevation (NSTEMI) myocardial infarction; E03.9 Hypothyroidism, unspecified; E78.5 Hyperlipidemia, unspecified; I10 Essential (primary) hypertension; E11.65 Type 2 diabetes mellitus with hyperglycemia; F41.9 Anxiety disorder, unspecified; Z91.14 Patient's other noncompliance with medication regimen; Z20.822 Contact with and (suspected) exposure to COVID-19; Z79.82 Long term (current) use of aspirin; Z79.890 Hormone replacement therapy; Z79.899 Other long term (current) drug therapy
CPT/HCPCS: 36415; 71045; 80048; 80061; 83036; 84443; 84484; 85025; 85379; 85610; 85730; 87635; 93005; 93306; 99285; J1650; Q9957

== ENCOUNTER 2020-08-09 16:46 | Emergency (ER) | payer MEDICAID, SELFPAY ==
[2020-08-09] VITALS (7 sets, daily range): BP systolic 148–185; BP diastolic 72–93; PULSE 55–63; RESP 16–18; TEMP 36.5–37.1; O2SAT 97–98; BMI 27.4
--- NOTE | ~2020-08-09 | XR_ITS ---
EXAMINATION: XR CHEST CLINICAL INFORMATION: Weakness, dizziness. COMPARISON: Chest x-ray 06/30/2020 TECHNIQUE: 2 views of the chest were obtained. FINDINGS: The cardiomediastinal silhouette is within normal limits. The lungs are well expanded. There is no focal consolidation, edema, or effusion. No pneumothorax. Dextroconvex scoliosis of thoracic spine. Multilevel degenerative changes of the spine. XR/XR chest 2V IMPRESSION: No evidence of acute process.
--- NOTE | ~2020-08-09 | CT_ITS ---
EXAMINATION: CT HEAD WITHOUT CONTRAST CLINICAL INFORMATION: Dizziness, weakness. COMPARISON: None TECHNIQUE: Contiguous axial imaging was performed from the skull base to vertex without intravenous administration of contrast. This CT examination was performed using dose optimization techniques as appropriate, variously including the following: *Automated exposure control *Adjustment of mA and/or kV according to patient size (this includes techniques or standardized protocols for targeted exams where dose is matched to indication/reason for exam; i.e. extremities or head) *Use of iterative reconstruction technique DLP: 614 mGy-cm FINDINGS: There is no evidence of acute intracranial hemorrhage or territorial infarction. No abnormal mass effect or midline shift is seen. James to white matter differentiation is well preserved. No extra-axial fluid collections are identified. The ventricles are normal in size. There is no abnormal attenuation within the brain parenchyma. The osseous structures and soft tissues are normal. The mastoid air cells and visualized portions of the paranasal sinuses are well aerated. CT/CT head/brain wo con IMPRESSION: No CT evidence of acute intracranial pathology.
--- NOTE | 2020-08-09 17:09 | ECG_ITS ---
Test Reason : HIGH BLOOD PRESSURE Blood Pressure : / mmHG Vent. Rate : 061 BPM Atrial Rate : 061 BPM P-R Int : 172 ms QRS Dur : 092 ms QT Int : 442 ms P-R-T Axes : 047 015 -08 degrees QTc Int : 444 ms Normal sinus rhythm Voltage criteria for left ventricular hypertrophy Possible Inferior infarct , age undetermined Abnormal ECG When compared with ECG of 30-JUN-2020 20:45, No significant change was found Referred By: Gladis Bermeo Electronically Signed By:MAXIME SALDIVAR MD
[2020-08-09 17:41] LABS: MANUAL DIFF FLAG NO
[2020-08-09 17:43] LABS: Basophils Percent Auto 0.5 % (0-2); Eosinophils Absolute Auto 0.4 X10*3/uL (0.0-0.4); Eosinophils Percent Auto 5.1 % (0-4); Hematocrit 37.7 % (42-52); Hemoglobin 12.3 g/dl (14.0-18.0); Imm Gran Abs Auto 0.01 X10*3/uL (0.00-0.03); Imm Gran Pct Auto 0.1 % (0.0-0.4); Lymphocytes Absolute Auto 1.8 X10*3/uL (1.2-4.9); Lymphocytes Percent Auto 22.8 % (20-40); Mean Corpuscular HGB Conc 32.6 g/dl (31.0-36.0); Mean Corpuscular Hemoglobin 26.6 pg (27.0-33.0); Mean Corpuscular Volume 81.4 fL (80-98); Mean Platelet Volume 9.3 fL (9.4-12.4); Monocytes Absolute Auto 0.6 X10*3/uL (0.1-1.2); Neutrophils Absolute Auto 4.9 X10*3/uL (2.0-8.3); Neutrophils Percent Auto 63.5 % (45-73); Platelet Count 286 X10*3/uL (160-400); Red Blood Count 4.63 X10*6/uL (4.60-5.80); Red Cell Distribution Width 13.5 % (11.0-16.0); White Blood Count 7.8 X10*3/uL (4.8-10.8)
[2020-08-09 17:51] LABS: INTERNATIONAL NORM RATIO 1.1 (0.9-1.1); Prothrombin Time 12.1 SEC (9.9-13.0)
[2020-08-09 18:08] LABS: Alanine Aminotransferase 20 U/L (0-40); Albumin Level 3.8 g/dL (3.5-5.0); Alkaline Phosphatase 97 U/L (39-117); Anion Gap 17 (12-20); Aspartate Amino Transferase 16 U/L (5-37); Bilirubin Total 0.5 mg/dL (0.0-1.0); Blood Urea Nitrogen 10 mg/dL (9-16); Calcium 9.4 mg/dL (8.4-10.2); Carbon Dioxide 25 mmol/L (22-29); Chloride 100 mmol/L (96-108); Creatinine Clr Calc Pharmacy 91.6; Estimated Glomerular Filt Rate > 60; Glucose Random 177 mg/dL (60-115); Magnesium 1.9 mg/dL (1.6-2.6); Potassium 3.5 mmol/L (3.3-5.1); Sodium 138 mmol/L (135-145); Total Protein 7.2 g/dL (6.5-8.0)
[2020-08-09 18:26] LABS: B Type Natriuretic Peptide 33 pg/mL (<100); Troponin-I High Sensitivity 55.3 ng/L (<3.5-35.0)
--- NOTE | 2020-08-09 18:45 | ED_ITS ---
HPI - Dizziness General Chief Complaint: Recheck/Abnormal Lab/Rx Stated Complaint: High blood pressure Time Seen by Provider: 08/09/20 16:54 Source: patient Mode of arrival: ambulatory Limitations: no limitations History of Present Illness HPI Narrative: 55-year-old male with a past medical history of an NSTEMI status post cardiac catheterization with stent placement, hypertension, hyperlipidemia and hypothyroidism presenting to the ED with complaints of generalized weakness and fatigue that started yesterday. Patient reports he also had left sharp chest pain and tingling to his left arm which lasted approximately 30 seconds yesterday which resolved. Reports he also noted his blood pressure was high in the 180s/100s prior to arrival despite taking all his blood pressure medications. Patient was recently seen here on 06/30/2020 for an NSTEMI then he was transferred to [facility] and had a cardiac catheterization with lesion in the proximal RCA therefore had successful stent placed. reports since then he has been having no issues and has been feeling fine. patient is currently on metoprolol, losartan -hydrochlorothiazide combo and Brilinta taking as prescribed and last took this morning. MD elicited complaint: other ( General weakness, fatigue, resolved left arm tingling and high blood pressure) Onset (ago): day(s) ( 2 days) Timing: gradual onset and constant Severity: mild History of similar symptoms: No Exacerbating factors: nothing Relieving factors: nothing Associated symptoms: denies other symptoms Related Data Home Medications Medication Instructions Recorded Confirmed aspirin 81 mg PO DAILY 06/30/20 06/30/20 levothyroxine 50 mcg PO DAILY 06/30/20 06/30/20 losartan-hydrochlorothiazide 100 mg PO DAILY 06/30/20 06/30/20 paroxetine HCl 30 mg PO QAM 06/30/20 06/30/20 trazodone 50 mg PO BEDTIME 06/30/20 06/30/20 Previous Rx's Medication Instructions Recorded atorvastatin 40 mg PO BEDTIME #1 tab 07/01/20 heparin(porcine) in 0.45% NaCl 25,000 unit CONTINUOUS IV INFUSION 07/01/20 .Q0M #1 ml metoprolol tartrate 12.5 mg PO BID #1 tab 07/01/20 amlodipine 5 mg PO DAILY #30 tab 08/09/20 Allergies Allergy/AdvReac Type Severity Reaction Status Date / Time No Known Allergies Allergy Verified 08/09/20 16:49 [No Known Allergies*] Review of Systems Review of Systems: Constitutional : No Fever, No Chills, No Night Sweats, No Fatigue, No Malaise ENT/Mouth : No Ear Pain, No Nasal Congestion, No Sinus Pain, No sore throat, No Rhinorrhea Eyes: No Eye Pain, No Swelling, No Redness, No Foreign Body, No Discharge, No Vision Changes Cardiovascular : resolved Chest Pain, No SOB, No Dyspnea on Exertion, No Orthopnea, No Palpitations Respiratory : No Cough, No Sputum, No Wheezing, No Dyspnea Gastrointestinal : No Nausea, No Vomiting, No Diarrhea, No Constipation, No abdominal Pain, No Hematochezia, No Melena Genitourinary : No Dysuria, No Urinary Frequency, No Urinary Incontinence, No Urgency, No Flank Pain Musculoskeletal : No joint pain, No Myalgias Skin : No lacerations Neuro : Positive general weakness /fatigue, resolve left arm paresthesias, No Focal weakness, No Numbness, No Loss of Consciousness, No Dizziness, No He adache Yes all other systems are reviewed and are negative [facility] Past Medical History Attestation statement: The following information was validated with the patient. Medical History Anxiety Essential hypertension Hypertension Hypothyroidism Social History Social History Alcohol intake: never Smoked in Last 30 Days: No Use of substances other than those prescribed or required for medical reasons: No Advance Directives: No Advance Directives Information Provided: No service: No Current occupational status: unemployed Physical Exam Vital Signs: Vital Signs: Last Vital Signs Temp 97.7 F 08/09/20 21:09 Pulse 58 08/09/20 21:37 Resp 17 08/09/20 21:09 BP 183/93 H 08/09/20 21:37 Pulse Ox 97 08/09/20 21:09 Body Mass Index 27.4 Vital signs have been reviewed as normal and appeared to be correct. Blood pressure hypertensive at 185/72. Heart rate normal. Respiration rate normal. Temperature normal. Oxygen saturation normal. Appearance: Alert. Oriented X3. No acute distress. Head: Normal external exam. Normocephalic. Atraumatic. Able to rotate head bilaterally. Eyes: PERRLA. EOMI. No nystagmus noted. Conjunctiva and sclera normal. Eyelids normal. Corneal reflex normal. ENT: Hearing normal. Pharynx normal. Uvula midline. tongue midline. Moist mucous membranes. Neck: Normal inspection. Neck supple. FROM. No adenopathy. Trachea midline. Thyroid Normal. No meningeal signs. No neck mass noted. CVS: Normal heart rate and rhythm. Heart sound normal. No murmurs noted. Pulses normal throughout. Respiratory: No respiratory distress. Painless inspiration. Breath sounds normal. No wheezes/rales/rhonchi noted. Chest nontender. No accessory muscle usage noted or decreased air movement noted. Abdomen: Soft and nontender. Bowel sounds normal in all 4 quadrants. No distention noted. No organomegaly noted. No visible injury noted. Back: Full range of motion noted. Skin: Skin warm and dry. Normal skin color. Normal skin turgor. No r ashes/lesions/lacerations noted. Extremities: No lower extremity edema. Extremities exhibit normal range of motion. Extremities nontender. Able to shrug shoulders bilaterally and keep up against resistance. Neuro: Oriented X 3. No motor deficit. No sensory deficit. Reflexes normal. Moving all extremities. No focal motor deficits. Cranial nerves II-XI intact bilaterally. Facial strength normal. Normal cognition. Speech normal. Gait normal. Strength 5/5 throughout. No pronator drift. No tremor noted. No fasciculations noted. No rigidity noted. Muscle tone normal throughout. No asterixis noted. Lcutyd-ol-pepf test normal. Heel to cai test normal. Tandem gait normal. Does not sway with eyes open. Romberg test negative. Rapid alternating movement upper extremity normal. Rapid alternating movement lower extremity normal. Hand drop from overhead Misses face. NIHSS score 0. Course Course Course Narrative: 17:10pm - 55-year-old male with a past medical history of an NSTEMI status post cardiac catheterization with stent placement, hypertension, hyperlipidemia and hypothyroidism presenting to the ED with complaints of generalized weakness and fatigue that started yesterday. Patient reports he also had left sharp chest pain and tingling to his left arm which lasted approximately 30 seconds yesterday which resolved. Reports he also noted his blood pressure was high in the 180s/100s prior to arrival despite taking all his blood pressure medications. Patient was recently seen here on 06/30/2020 for an NSTEMI then he was transferred to [facility] and had a cardiac catheterization with lesion in the proximal RCA therefore had successful stent placed. reports since then he has been having no issues and has been feeling fine. patient is currently on metoprolol, losartan -hydrochlorothiazide combo and Brilinta taking as prescribed and last took this morning. Plan: Labs, EKG, CT scan of brain then re-evaluate. Reevaluation(s) Reevaluation #1: - Patient with a mild baseline anemia. Random glucose 177. Troponin 55.3. Otherwise all other labs are within normal limits. - CT scan of brain within normal limits no acute processes noted. Chest x-ray within normal limits no acute processes noted. EKG normal sinus rhythm with ventricular rate of 61 with a normal MO interval with nonspecific ST changes although no acute ischemic changes. Similar compared to prior EKG 06/30/2020. - Therefore will repeat a troponin then re-evaluate. Time: 19:56 Reevaluation #2: - repeat trop 68.7 Therefore negative delta. - therefore I consulted with Dr. Saavedra and he reported that the patient does not need to be admitted at this time due to he had chest pain for 30 seconds or left yesterday that resolved and has not returned today. He instructed me to control the blood pressure and possibly add another blood pressure medication and to have the patient follow-up with his felter tennis balls. Therefore Dr. Heller within and we discussed this with the patient we will place him on 5 mg of amlodipine and then instructions to return if any new or worsening symptoms to follow up with primary care provider. Patient understands agrees with this plan. Time: 22:39 [facility] - Dizziness Medical Records Attestation: I reviewed the patient's medical records. Lab Data Attestation: I reviewed the patient's lab results. Result diagrams: 08/09/20 17:36 08/09/20 17:36 Labs: Lab Results 08/09/20 08/09/20 08/09/20 Range/Units 17:36 17:36 17:36 WBC 7.8 (4.8-10.8) X10*3/uL RBC 4.63 (4.60-5.80) X10*6/uL Hgb 12.3 L (14.0-18.0) g/dl Hct 37.7 L (42-52) % MCV 81.4 (80-98) fL MCH 26.6 L (27.0-33.0) pg MCHC 32.6 (31.0-36.0) g/dl RDW 13.5 (11.0-16.0) % Plt Count 286 (160-400) X10*3/uL MPV 9.3 L (9.4-12.4) fL Immature Gran % (Auto) 0.1 (0.0-0.4) % Neut % (Auto) 63.5 (45-73) % Lymph % (Auto) 22.8 (20-40) % Howell % (Auto) 8.0 (2-11) % Eos % (Auto) 5.1 H (0-4) % Baso % (Auto) 0.5 (0-2) % Lymph # (Auto) 1.8 (1.2-4.9) X10*3/uL Howell # (Auto) 0.6 (0.1-1.2) X10*3/uL Eos # (Auto) 0.4 (0.0-0.4) X10*3/uL Baso # (Auto) 0.0 (0.0-0.2) X10*3/uL Abs Immat Gran (auto) 0.01 (0.00-0.03) X10*3/uL Absolute Neuts (auto) 4.9 (2.0-8.3) X10*3/uL Absolute Nucleated RBC 0.000 (0.0-0.012) X10*3/uL Nucleated RBC % (auto) 0.0 (0.0-0.2) /100WBC PT 12.1 (9.9-13.0) SEC INR 1.1 (0.9-1.1) Sodium 138 (135-145) mmol/L Potassium 3.5 (3.3-5.1) mmol/L Chloride 100 (96-108) mmol/L Carbon Dioxide 25 (22-29) mmol/L Anion Gap 17 (12-20) BUN 10 (9-16) mg/dL Creatinine 0.88 (0.5-1.4) mg/dL Estim Creat Clear Calc 91.6 Estimated GFR > 60 Random Glucose 177 H (60-115) mg/dL Calcium 9.4 (8.4-10.2) mg/dL Magnesium 1.9 (1.6-2.6) mg/dL Total Bilirubin 0.5 (0.0-1.0) mg/dL AST 16 (5-37) U/L ALT 20 (0-40) U/L Alkaline Phosphatase 97 (39-117) U/L Troponin I High Sens (<3.5-35.0) ng/L B-Natriuretic Peptide (<100) pg/mL Total Protein 7.2 (6.5-8.0) g/dL Albumin 3.8 (3.5-5.0) g/dL TSH 1.10 (0.32-4.0) uIU/mL 08/09/20 08/09/20 Range/Units 17:36 21:17 WBC (4.8-10.8) X10*3/uL RBC (4.60-5.80) X10*6/uL Hgb (14.0-18.0) g/dl Hct (42-52) % MCV (80-98) fL MCH (27.0-33.0) pg MCHC (31.0-36.0) g/dl RDW (11.0-16.0) % Plt Count (160-400) X10*3/uL MPV (9.4-12.4) fL Immature Gran % (Auto) (0.0-0.4) % Neut % (Auto) (45-73) % Lymph % (Auto) (20-40) % Howell % (Auto) (2-11) % Eos % (Auto) (0-4) % Baso % (Auto) (0-2) % Lymph # (Auto) (1.2-4.9) X10*3/uL Howell # (Auto) (0.1-1.2) X10*3/uL Eos # (Auto) (0.0-0.4) X10*3/uL Baso # (Auto) (0.0-0.2) X10*3/uL Abs Immat Gran (auto) (0.00-0.03) X10*3/uL Absolute Neuts (auto) (2.0-8.3) X10*3/uL Absolute Nucleated RBC (0.0-0.012) X10*3/uL Nucleated RBC % (auto) (0.0-0.2) /100WBC PT (9.9-13.0) SEC INR (0.9-1.1) Sodium (135-145) mmol/L Potassium (3.3-5.1) mmol/L Chloride (96-108) mmol/L Carbon Dioxide (22-29) mmol/L Anion Gap (12-20) BUN (9-16) mg/dL Creatinine (0.5-1.4) mg/dL Estim Creat Clear Calc Estimated GFR Random Glucose (60-115) mg/dL Calcium (8.4-10.2) mg/dL Magnesium (1.6-2.6) mg/dL Total Bilirubin (0.0-1.0) mg/dL AST (5-37) U/L ALT (0-40) U/L Alkaline Phosphatase (39-117) U/L Troponin I High Sens 55.3 H* 68.7 H* (<3.5-35.0) ng/L B-Natriuretic Peptide 33 (<100) pg/mL Total Protein (6.5-8.0) g/dL Albumin (3.5-5.0) g/dL TSH (0.32-4.0) uIU/mL Imaging Data Chest x-ray: Attestation: I personally reviewed and interpreted this imaging study as follows: Radiologist's impression: FINDINGS: The cardiomediastinal silhouette is within normal limits. The lungs are well expanded. There is no focal consolidation, edema, or effusion. No pneumothorax. Dextroconvex scoliosis of thoracic spine. Multilevel degenerative changes of the spine. XR/XR chest 2V IMPRESSION: No evidence of acute process. CT scan - head: Attestation: I personally reviewed and interpreted this imaging study as follows: Radiologist's impression: FINDINGS: There is no evidence of acute intracranial hemorrhage or territorial infarction. No abnormal mass effect or midline shift is seen. James to white matter differentiation is well preserved. No extra-axial fluid collections are identified. The ventricles are normal in size. There is no abnormal attenuation within the brain parenchyma. The osseous structures and soft tissues are normal. The mastoid air cells and visualized portions of the paranasal sinuses are well aerated. CT/CT head/brain wo con IMPRESSION: No CT evidence of acute intracranial pathology. ECG Data Attestation: I personally reviewed and interpreted this ECG as follows: ECG interpretation date: 08/09/20 ECG interpretation time: 17:35 Interpretation: EKG normal sinus rhythm with ventricular rate of 61 with a normal MO interval with nonspecific ST changes although no acute ischemic changes. Similar compared to prior EKG 06/30/2020. Critical Care Time Critical Care Time Critical Care Time: Yes Total Critical Care Time: 60 Attestation: I personally attest to this time spent taking care of the patient Discharge Plan Discharge Clinical Impression: Hypertension Patient Disposition: Home, Self-Care Instructions: Heart Healthy Diet (ED), Hypertension (ED) Prescriptions: New amlodipine 5 mg tablet 5 mg PO DAILY Qty: 30 RF: 0 No Action trazodone 50 mg tablet 50 mg PO BEDTIME RF: 0 aspirin 81 mg tablet,delayed release (DR/EC) 81 mg PO DAILY RF: 0 levothyroxine 50 mcg tablet 50 mcg PO DAILY RF: 0 paroxetine HCl 30 mg tablet 30 mg PO QAM RF: 0 losartan-hydrochlorothiazide 100 mg PO DAILY RF: 0 atorvastatin 40 mg Tablet 40 mg PO BEDTIME Qty: 1 RF: 0 heparin(porcine) in 0.45% NaCl 25,000 unit/250 mL Parenteral Solution 25,000 unit continuous IV infusion .Q0M Qty: 1 RF: 0 metoprolol tartrate 25 mg tablet 12.5 mg PO BID Qty: 1 RF: 0 Referrals: Physician,None [Primary Care Provider] - 2 days Jd Saavedra MD [Physician] - 2 days Print Language: Marshallese
[2020-08-09] MEDS: lisinopriL 10 MG TABLET PO (21:37)
[2020-08-09 22:13] LABS: Troponin-I High Sensitivity 68.7 ng/L (<3.5-35.0)
[2020-08-09] MEDS: amLODIPine Besylate 5 MG TABLET PO (23:06)
== END 2020-08-09 23:13 | disposition home or self-care (01) ==
PROVIDERS: Physician Assistant Medical; Emergency Provider Internal Medicine
DX: I10 Essential (primary) hypertension (principal); D64.9 Anemia, unspecified; E03.9 Hypothyroidism, unspecified; Z79.82 Long term (current) use of aspirin; Z79.899 Other long term (current) drug therapy; I25.2 Old myocardial infarction; Z95.5 Presence of coronary angioplasty implant and graft
CPT/HCPCS: 36415; 70450; 71046; 80053; 83735; 83880; 84443; 84484; 85025; 85610; 93005; 99284

== ENCOUNTER → 2020-09-02 14:15 | Outpatient (BNVA) | payer MEDICAID, SELFPAY | PROVIDERS: Visit Provider Internal Medicine Cardiovascular Disease | DX: I21.4 Non-ST elevation (NSTEMI) myocardial infarction (principal); I10 Essential (primary) hypertension | CPT/HCPCS: 93005; 99212 ==

== ENCOUNTER → 2022-01-10 13:25 | Outpatient (BNVA) | payer MEDICAID, SELFPAY | PROVIDERS: PCP Internal Medicine; Visit Provider Internal Medicine Cardiovascular Disease | DX: I25.10 Atherosclerotic heart disease of native coronary artery without angina pectoris (principal); R07.9 Chest pain, unspecified; I10 Essential (primary) hypertension; I25.2 Old myocardial infarction; Z95.5 Presence of coronary angioplasty implant and graft | CPT/HCPCS: 93005; 99212 ==

== ENCOUNTER → 2022-02-28 11:24 | Outpatient (REF) | payer MEDICAID, SELFPAY | LOC: HO.CARD 11:24 | PROVIDERS: PCP Nurse Practitioner Family; Visit Provider Internal Medicine Cardiovascular Disease | DX: Z13.89 Encounter for screening for other disorder (principal) ==

== ENCOUNTER → 2022-03-02 10:39 | Outpatient (REF) | payer MEDICAID, SELFPAY ==
--- NOTE | 2022-03-02 11:00 | CA_ITS ---
Acquisition Time: 2022-03-02 10:42:37 Total Exercise Time: 00:12:14 Test Indications: CP Medications: SEE CHART Protocol: DRISS Max HR: 151 BPM 93% of Pred: 162 BPM Max BP: 174/076 mmHG Max Work Load: 13.8 METS Exercise stress test with exercise 12 min 14 sec of Driss protocol, achieving 92% MPHR, 13.8 METs, without anginal symptoms, with isolated PVCs, with normotensive response to exercise, with baseline EKG showing T wave inversions leads III, aVF, V6 then with exercise there is [address] depressions with T inversions inferiorly and V3-V6 suggestive of ischemia. Echo images obtained by tech at rest and immediately post peak exercise, Definity contrast used. Test reviewed with Dr Navarrete. EKG tracings reviewed with Dr Yuan Referred By: Alexander Yuan Overread By: LOUANN QUEEN
== END ==
LOC: HO.CARD 10:39
PROVIDERS: PCP Nurse Practitioner Family; Visit Provider Internal Medicine Cardiovascular Disease
DX: R07.9 Chest pain, unspecified (principal)
CPT/HCPCS: 93350; Q9957

== ENCOUNTER → 2022-03-03 12:37 | Outpatient (BNVA) | payer MEDICAID, SELFPAY | PROVIDERS: PCP Nurse Practitioner Family; Visit Provider Nurse Practitioner Family | DX: R07.9 Chest pain, unspecified (principal); R06.02 Shortness of breath; I25.10 Atherosclerotic heart disease of native coronary artery without angina pectoris; I10 Essential (primary) hypertension; R94.39 Abnormal result of other cardiovascular function study; Z95.5 Presence of coronary angioplasty implant and graft | CPT/HCPCS: 99212 ==

== ENCOUNTER → 2022-04-19 14:58 | Outpatient (BNVA) | payer MEDICAID, SELFPAY | PROVIDERS: PCP Nurse Practitioner Family; Referring Provider Nurse Practitioner Family; Visit Provider Nurse Practitioner Family | DX: I25.10 Atherosclerotic heart disease of native coronary artery without angina pectoris (principal); I10 Essential (primary) hypertension; R07.9 Chest pain, unspecified; R06.02 Shortness of breath; I25.2 Old myocardial infarction; Z79.82 Long term (current) use of aspirin; Z79.899 Other long term (current) drug therapy; Z95.5 Presence of coronary angioplasty implant and graft | CPT/HCPCS: 93005; 99212 ==

== ENCOUNTER → 2022-07-20 15:15 | Outpatient (BNVA) | payer OTHER, SELFPAY | PROVIDERS: PCP Nurse Practitioner Family; Referring Provider Nurse Practitioner Family; Visit Provider Internal Medicine Cardiovascular Disease | DX: I45.81 Long QT syndrome (principal); I10 Essential (primary) hypertension; Z95.1 Presence of aortocoronary bypass graft; Z98.890 Other specified postprocedural states; Z79.82 Long term (current) use of aspirin; Z79.899 Other long term (current) drug therapy | CPT/HCPCS: 93005; 99212 ==

== ENCOUNTER 2022-11-28 14:52 | Outpatient (AMB) | payer SELFPAY ==
--- NOTE | 2022-11-28 14:57 | MHC.OFFVIS ---
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 Accompanied by: Self / Same As Patient Allergies No Known Allergies [No Known Allergies*] Allergy (Verified 11/28/22 14:59) Medication List - Last Reconciled 11/28/22 by Alexander Yuan MD amlodipine 10 mg PO DAILY aspirin 81 mg PO DAILY atorvastatin 40 mg PO BEDTIME dulaglutide (Trulicity) 1.5 mg subcut QWEEK empagliflozin (Jardiance) 25 mg PO DAILY hydrochlorothiazide 12.5 mg PO DAILY levothyroxine 50 mcg PO DAILY losartan-hydrochlorothiazide 100-12.5 mg 1 tab PO DAILY metoprolol succinate ER 25 mg PO DAILY 90 days paroxetine HCl 30 mg PO QAM trazodone 50 mg PO BEDTIME HPI HPI Comments History of Present Illness Details Pleasant 57-year-old gentleman from [place] who is here for follow-up. He was seen in August 2020 when he presented with chest pain and NSTEMI. He was taken for cardiac catheterization which showed critical right coronary artery stenosis which was treated with drug-eluting stent. He subsequently had repeat cardiac catheterization for ongoing symptoms which showed multivessel diffuse disease including left main. He was referred for bypass surgery and is now status post bypass surgery performed by Dr. Ivey. He has been doing well post surgery. He has no chest discomfort shortness of breath. He has some numbness on the left side of his chest. He has started cardiac rehabilitation. His EKG in the office is showing precordial T-wave inversions. He is 5 weeks post surgery. He is saying he is taking all medications that were given to him after discharge from hospital. One common drug is amiodarone to prevent perioperative atrial fibrillation and these changes can be due to amiodarone. He is going to call us with his medications from home. 11/28/2022: He returns for follow-up. He is complaining that off and on gets left-sided sharp chest discomfort lasting for few seconds. This is significantly different from his anginal discomfort which was a central pressure-like feeling. He has not had any anginal symptoms since bypass surgery and mostly as non anginal chest pains. His blood pressure is mildly elevated but his home blood pressure readings have been normal. He said he just took his medications before he came in and apparently took them late today. Denying any other issues currently. He has lost LDL cholesterol was 172 in 2020. Appears he has not had any lipid testing in the interim. [facility] Medical History (Updated 03/03/22 @ 13:47 by MARINA Branham) Essential hypertension Hypothyroidism Hypertension Anxiety Surgical History Hx of CABG History of cardiac cath Social History Alcohol intake: never Patient Tobacco Use Status: Never used Tobacco service: No Current occupational status: unemployed Review of Systems Const Denies weakness ENT Denies dizziness Card Denies chest pain, Denies chest pain with activity, Denies syncope, Denies rapid heart rate, Denies pedal edema, Denies edema, Denies leg edema, Denies lightheadedness, Denies palpitations, Denies dyspnea, Denies dyspnea on exertion and Denies orthopnea Resp Denies cough, Denies dyspnea and Denies dyspnea on exertion GI Denies hematochezia and Denies change in stool character Musc Denies abnormal gait, Denies muscle cramps, Denies muscle weakness, Denies numbness, Denies radiating pain into limb and Denies tingling Neuro Denies abnormal gait, Denies dizziness, Denies syncope, Denies numbness, Denies tingling and Denies weakness Endo Denies palpitations Physical Exam Vital Signs: Last Vital Signs Pulse 66 11/28/22 14:58 BP 142/72 H 11/28/22 14:58 BMI result Body Mass Index 30.5 GENERAL APPEARANCE: in no acute distress, pleasant. NECK: no carotid bruit, no jugular venous distention. SKIN: Mid line sternotomy scar, lower extremities car from vein harvest, left wrist scar from radial harvest. HEART: no murmurs, regular rate and rhythm. LUNGS: clear to auscultation bilaterally. ABDOMEN: soft, nontender. EXTREMITIES: no edema. PERIPHERAL PULSES: equal. NEUROLOGIC: No gross deficits, AAO X 3 Assessment & Plan Assessment & Plan (1) Chest pain: Code(s): R07.9 - Chest pain, unspecified (2) S/P CABG (coronary artery bypass graft): Code(s): Z95.1 - Presence of aortocoronary bypass graft (3) Essential hypertension: Code(s): I10 - Essential (primary) hypertension Plan Pleasant 57-year-old gentleman who is here for follow-up. He has known history of coronary artery bypass surgery. He has done well since then and has nose anginal chest discomfort. He has non anginal left-sided sharp chest pains off and on lasting few seconds. I have reassured him about that. Blood pressure is mildly elevated but home blood pressure readings have been in 130s by 80s. He has blood pressure monitor at home and will reach out to us if he noticed any high blood pressure readings in excess of 140s. His last LDL cholesterol in our system was in 2020 which was 172. He is taking atorvastatin 40 mg once a day. We will arrange all fasting lipid panel for him. Thank you for allowing me to participate in the care of your patient. Please feel free to contact me if you have any questions. Orders: Orders Lipid Panel Today I25.10 - Atherosclerotic heart disease of sun'aq coronary artery without angina pectoris Coding Level of Care Code Est Pt Level 4 (50092) Diagnoses Chest pain R07.9 S/P CABG (coronary artery bypass graft) Z95.1 Essential hypertension I10
[2022-11-28 14:58] VITALS: BP 142/72; PULSE 66; BMI 30.5
== END 2022-11-28 15:16 | disposition home or self-care (01) ==
PROVIDERS: PCP Nurse Practitioner Family; Visit Provider Internal Medicine Cardiovascular Disease
DX: R07.9 Chest pain, unspecified (principal); Z95.1 Presence of aortocoronary bypass graft; I10 Essential (primary) hypertension
CPT/HCPCS: 99214

== ENCOUNTER → 2022-11-28 14:52 | Outpatient (BNVA) | payer MEDICAID, OTHER, SELFPAY | PROVIDERS: PCP Nurse Practitioner Family; Visit Provider Internal Medicine Cardiovascular Disease | DX: R07.9 Chest pain, unspecified (principal); I10 Essential (primary) hypertension; Z95.1 Presence of aortocoronary bypass graft | CPT/HCPCS: 99212 ==

== ENCOUNTER 2023-06-05 14:40 | Outpatient (AMB) | payer OTHER, SELFPAY ==
[2023-06-05 14:57] VITALS: BP 140/80; PULSE 62; O2SAT 97; BMI 30.9
--- NOTE | 2023-06-05 14:57 | MHC.OFFVIS ---
Vital Signs 06/05/23 14:57 Height 5 ft 3 in Weight 174 lb 9.698 oz BMI 30.9 BP 140/80 H Blood Pressure Location Lt brachial Position Sitting Pulse 62 Pulse Source Pulse Oximeter Pulse Oximetry (%) 97 Intake Visit Reasons: 6M follow up Intake Note: pt state that he its doing fine. 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 Accompanied by: Self / Same As Patient Allergies No Known Allergies [No Known Allergies*] Allergy (Verified 11/28/22 14:59) Medication List - Last Reconciled 06/05/23 by Alexander Yuan MD amlodipine 10 mg PO DAILY aspirin 81 mg PO DAILY atorvastatin 40 mg PO BEDTIME dulaglutide (Trulicity) 1.5 mg subcut QWEEK empagliflozin (Jardiance) 25 mg PO DAILY hydrochlorothiazide 12.5 mg PO DAILY levothyroxine 50 mcg PO DAILY losartan-hydrochlorothiazide 100-12.5 mg 1 tab PO DAILY metoprolol succinate ER 25 mg PO DAILY 90 days paroxetine HCl 30 mg PO QAM trazodone 50 mg PO BEDTIME HPI Comments Details: Pleasant 58-year-old gentleman from [place] who is here for follow-up. He was seen in August 2020 when he presented with chest pain and NSTEMI. He was taken for cardiac catheterization which showed critical right coronary artery stenosis which was treated with drug-eluting stent. He subsequently had repeat cardiac catheterization for ongoing symptoms which showed multivessel diffuse disease including left main. He was referred for bypass surgery and is now status post bypass surgery performed by Dr. Ivey. He has been doing well post surgery. He has no chest discomfort shortness of breath. He has some numbness on the left side of his chest. He has started cardiac rehabilitation. His EKG in the office is showing precordial T-wave inversions. He is 5 weeks post surgery. He is saying he is taking all medications that were given to him after discharge from hospital. One common drug is amiodarone to prevent perioperative atrial fibrillation and these changes can be due to amiodarone. He is going to call us with his medications from home. 11/28/2022: He returns for follow-up. He is complaining that off and on gets left-sided sharp chest discomfort lasting for few seconds. This is significantly different from his anginal discomfort which was a central pressure-like feeling. He has not had any anginal symptoms since bypass surgery and mostly as non anginal chest pains. His blood pressure is mildly elevated but his home blood pressure readings have been normal. He said he just took his medications before he came in and apparently took them late today. Denying any other issues currently. He has lost LDL cholesterol was 172 in 2020. Appears he has not had any lipid testing in the interim. 06/05/23: He is here for follow-up. He has been doing well. He has some atypical left-sided chest pain since bypass surgery but did not have any anginal symptoms. Blood pressure is elevated. He was advised to do a lipid panel last time but it appears he did not do it. We discussed that he needs repeat his blood workup. [facility] Medical History (Updated 03/03/22 @ 13:47 by MARINA Branham) Essential hypertension Hypothyroidism Hypertension Anxiety Surgical History Hx of CABG History of cardiac cath Social History Alcohol intake: never Patient Tobacco Use Status: Never used Tobacco service: No Current occupational status: unemployed Review of Systems Const Denies chills, Denies fatigue, Denies fever(s), Denies frequent falls, Denies weakness, Denies weight gain and Denies weight loss ENT Denies dizziness Card Denies chest pain, Denies leg edema, Denies lightheadedness, Denies palpitations, Denies dyspnea and Denies dyspnea on exertion Resp Denies cough, Denies dyspnea and Denies dyspnea on exertion GI Denies hematochezia Musc Denies abnormal gait, Denies muscle weakness, Denies numbness, Denies radiating pain into limb and Denies tingling Neuro Denies abnormal gait, Denies dizziness, Denies frequent falls, Denies numbness, Denies tingling and Denies weakness Endo Denies fatigue and Denies palpitations Physical Exam Vital Signs: Last Vital Signs Pulse 62 06/05/23 14:57 BP 140/80 H 06/05/23 14:57 Pulse Ox 97 06/05/23 14:57 BMI result Body Mass Index 30.9 GENERAL APPEARANCE: in no acute distress, pleasant. NECK: no carotid bruit, no jugular venous distention. SKIN: Mid line sternotomy scar, lower extremities car from vein harvest, left wrist scar from radial harvest. HEART: no murmurs, regular rate and rhythm. LUNGS: clear to auscultation bilaterally. ABDOMEN: soft, nontender. EXTREMITIES: no edema. PERIPHERAL PULSES: equal. NEUROLOGIC: No gross deficits, AAO X 3 Assessment & Plan Assessment & Plan (1) S/P CABG (coronary artery bypass graft): Code(s): Z95.1 - Presence of aortocoronary bypass graft Category: Surgical (2) Stented coronary artery: Comment: GERONIMO to RCA 08/2020 Code(s): Z95.5 - Presence of coronary angioplasty implant and graft Category: Surgical (3) Essential hypertension: Code(s): I10 - Essential (primary) hypertension Category: Medical Plan Pleasant 58-year-old gentleman who is here for follow-up. He has known history of coronary artery disease with previous PCI as well as coronary artery bypass surgery. He has done well since then and has stable angina. His blood pressure is elevated and was elevated on previous visit 2. He is taking hydrochlorothiazide losartan combination, metoprolol and amlodipine. He is also taking hydrochlorothiazide separately 12.5 mg daily. Adding spironolactone 25 mg daily. We will repeat blood workup including BUN, creatinine and electrolytes. He will also have a fasting lipid panel. Thank you for allowing me to participate in the care of your patient. Please feel free to contact me if you have any questions. Orders: Orders B Type Natriuretic Peptide Today I25.10 - Atherosclerotic heart disease of [place] coronary artery without angina pectoris Lipid Panel Today I25.10 - Atherosclerotic heart disease of [place] coronary artery without angina pectoris Medications: New spironolactone 25 mg PO DAILY 60 tabs 3RF I10 - Essential (primary) hypertension Coding Level of Care Code Est Pt Level 4 (27071) Diagnoses S/P CABG (coronary artery bypass graft) Z95.1 Stented coronary artery Z95.5 Essential hypertension I10
== END 2023-06-05 15:18 | disposition home or self-care (01) ==
PROVIDERS: PCP Nurse Practitioner Family; Visit Provider Internal Medicine Cardiovascular Disease
DX: Z95.1 Presence of aortocoronary bypass graft (principal); Z95.5 Presence of coronary angioplasty implant and graft; I10 Essential (primary) hypertension
CPT/HCPCS: 99214

== ENCOUNTER → 2023-06-05 14:40 | Outpatient (BNVA) | payer MEDICAID, OTHER, SELFPAY | PROVIDERS: PCP Nurse Practitioner Family; Visit Provider Internal Medicine Cardiovascular Disease | DX: I25.10 Atherosclerotic heart disease of native coronary artery without angina pectoris (principal); I10 Essential (primary) hypertension; R07.9 Chest pain, unspecified; Z95.1 Presence of aortocoronary bypass graft; Z95.5 Presence of coronary angioplasty implant and graft | CPT/HCPCS: 99212 ==